=== PATIENT | female | born 1990 | race Hispanic/Latino ===

== ENCOUNTER 2019-02-10 12:37 | Emergency (ER) | payer OTHER ==
[2019-02-10] MEDS ORDERED: KETOROLAC TROMETHAMINE 60 MG/2 ML VIAL ONE (13:39)
== END 2019-02-10 14:12 | disposition home or self-care (01) ==
LOC: EDH 12:37
DX: M25.512 Pain in left shoulder (principal); Z98.51 Tubal ligation status; Z87.891 Personal history of nicotine dependence
CPT/HCPCS: 73030; 96372; 81025; 99285; J1885